=== PATIENT | male | born 1940 | race Caucasian/White ===

== ENCOUNTER 2021-08-11 09:09 | Outpatient (CLI) | payer MEDICARE, OTHER, SELFPAY ==
--- NOTE | ~2021-08-11 | XR_ITS ---
XR wrist RT min 3V DATE: 08/11/2021 09:26 INDICATION: Pain, limited range of motion of right wrist TECHNIQUE: 4 views COMPARISON: None FINDINGS: There is severe narrowing at the radial scaphoid joint. No fracture, dislocation, periosteal reaction or bone destruction, erosive change or chondrocalcinosi s is noted. 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 [employer]
== END 2021-08-11 09:10 | disposition home or self-care (01) ==
PROVIDERS: PCP Family Medicine; Visit Provider Plastic Surgery
DX: M19.031 Primary osteoarthritis, right wrist (principal)
CPT/HCPCS: 73110